=== PATIENT | male | born 1995 | race Caucasian/White ===

== ENCOUNTER 2022-03-01 12:10 | Emergency (ER) | payer BC, SELFPAY | END 2022-03-01 14:28 | disposition home or self-care (01) | LOC: ERS 12:10 | DX: S20.411A Abrasion of right back wall of thorax, initial encounter (principal); W18.30XA Fall on same level, unspecified, initial encounter | CPT/HCPCS: 99283 ==

== ENCOUNTER 2024-01-12 14:19 | Outpatient (CLI) | payer BC ==
[~2024-01-12 14:19] MED LIST: Magnevist 469MG/ML 20 ML VIAL ONE
== END 2024-01-12 14:20 | disposition home or self-care (01) ==
LOC: BICMRI 14:19
PROVIDERS: ATTEND Orthopaedic Surgery Orthopaedic Surgery of the Spine
DX: M54.16 Radiculopathy, lumbar region (principal); Z98.890 Other specified postprocedural states
CPT/HCPCS: 72158; A9579